=== PATIENT | male | born 1990 | race Caucasian/White ===

== ENCOUNTER 2018-03-09 23:23 | Emergency (ER) | payer SELFPAY, OTHER ==
[2018-03-10] MEDS: IBUPROFEN 800 MG TAB PO (01:08)
[2018-03-10 02:17] LABS: MONOTEST Negative (NEG)
[2018-03-10] MEDS ORDERED: LIDOCAINE 1% (MDV) 10 ML INJ INJ (02:31)
[2018-03-10] MEDS: CEFTRIAXONE 1 GM INJ IM (02:37)
[2018-03-10] MEDS: LIDOCAINE 1% (MDV) 20 ML INJ INJ (02:49)
== END 2018-03-10 02:55 | disposition home or self-care (01) ==
LOC: FTE 23:23
DX: J02.9 Acute pharyngitis, unspecified (principal)
CPT/HCPCS: 36415; 86308; 87430; 87880; 96372; 99284-25